=== PATIENT | male | born 1985 | race African-American/Black ===

== ENCOUNTER 2017-03-15 12:59 | Inpatient (IN) | payer OTHER ==
[~2017-03-15] VITALS: Ht 170.2 cm; Wt 77.6 kg
--- NOTE | 2017-03-15 12:59 | NUR ---
Patient BIBA to bed 7.
[2017-03-15 13:00] VITALS: BP 105/66
--- NOTE | 2017-03-15 13:20 | NUR ---
PATIENT BIBA DUE TO suicidal ideation/hurting himself.denies hearing voices.HX OF ptsd,depression. denies taking meds.DENIES N/V/D; SKIN IS PINK/WARM/DRY; LUNGS CLEAR BL; HR EVEN AND REGULAR; PT DENIES ANY FEVER, CP, SOB, OR COUGH AT THIS TIME; PATIENT STATES PAIN OF 0/10 AT THIS TIME; PATIENT POSITIONED FOR COMFORT; HOB ELEVATED; BEDRAILS UP X2; BED DOWN. ER MD MADE AWARE OF PT STATUS.
--- NOTE | 2017-03-15 13:30 | NUR ---
[facility] pd called and at bedside
[2017-03-15 13:58] LABS: BASOPHILS # (AUTO) 0.2 K/uL (0.00-0.22); EOSINOPHILS # (AUTO) 0.1 K/uL (0-0.4); HEMATOCRIT 41.2 % (36-52); HEMOGLOBIN 14.1 g/dL (12.0-18.0); LYMPHOCYTES # (AUTO) 0.7 K/uL (2.0-11.5); MEAN CORPUSCULAR HEMOGLOBIN 30 pg (27-31); MEAN CORPUSCULAR HGB CONC 34 g/dL (33-37); MEAN CORPUSCULAR VOLUME 89 fL (80-94); MONOCYTES # (AUTO) 0.6 K/uL (0.8-1.0); NEUTROPHILS # (AUTO) 4.5 K/uL (1.8-7.7); PLATELET COUNT (AUTO) 184 K/uL (140-450); RED BLOOD CELL COUNT(AUTO) 4.64 MIL/uL (4.20-6.10); WHITE BLOOD COUNT (AUTO) 6.1 K/uL (4.8-10.8)
[2017-03-15 14:09] LABS: ANION GAP 11.3 (8-16); CARBON DIOXIDE 29.6 mmol/L (21-32); CHLORIDE 103 mmol/L (98-107); CREATININE 1.2 mg/dL (0.7-1.3); GFR ARICAN-AMERICAN 92 mL/min (>90); GLUCOSE 90 mg/dL (74-106); POTASSIUM 3.9 mmol/L (3.5-5.1); SODIUM SERUM 140 mmol/L (136-145); UREA NITROGEN, BLOOD 11 mg/dL (7-18)
[2017-03-15 14:17] LABS: ALBUMIN 3.7 g/dL (3.4-5.0); ASPARTATE AMINOTRANSFERASE 22 U/L (15-37); TOTAL BILIRUBIN 0.7 mg/dL (0.0-1.0)
--- NOTE | 2017-03-15 14:23 | NUR ---
PT RESTING ON BED;SAFETY MEASURES INSTITUTED;NO ACUTE DISTRESS NOTED;WILL CONTINUE TO MONITOR PT.
[2017-03-15 14:28] LABS: ACETAMINOPHEN < 0.5 ug/ml (10-30); SALICYLATE < 2.8 mg/dL (2.8-20.0)
--- NOTE | 2017-03-15 15:30 | NUR ---
PT SLEEPING;NO ACUTE DISTRESS NOTED;WILL CONTINUE TO MONITOR PT.
--- NOTE | 2017-03-15 15:31 | NUR ---
RICARDO TURNER AT BEDSIDE.
[2017-03-15 16:12] LABS: APPEARANCE,URINE CLEAR (CLEAR); BILIRUBIN,URINE NEGATIVE (NEGATIVE); BLOOD, URINE NEGATIVE (NEGATIVE); COLOR,URINE YELLOW (YELLOW); LEUKOCYTE ESTERASE ,URINE NEGATIVE (NEGATIVE); NITRITE, URINE NEGATIVE (NEGATIVE); PH,URINE 6.5 (5.0-9.0); UGLUCOSE NEGATIVE (NEGATIVE)
[2017-03-15 16:24] LABS: BARBITURATE, URINE NEG. ng/ml (NEG <=200); BENZODIAZEPINE, URINE NEG. ng/mL (NEG <=200); CANNABINOID, URINE NEG. ng/mL (NEG <=50); COCAINE, URINE NEG. ng/mL (NEG <=300); OPIATE, URINE NEG. ng/mL (NEG <=2000); PHENCYCLIDINE SCREEN,URINE NEG. ng/mL (NEG <=25)
--- NOTE | 2017-03-15 19:15 | NUR ---
pt is in bed reading. will continue to monitor.
[2017-03-15] MEDS ORDERED: ACETAMINOPHEN 325 MG TAB PO PRN (19:35)
--- NOTE | 2017-03-15 20:12 | NUR ---
pt is in bed resting, vss, will continue to monitor.
[2017-03-15 20:15] VITALS: BP 110/54
--- NOTE | 2017-03-15 20:15 | NUR ---
PATIENT ADMITTED TO THE UNIT ON A 5150 HOLD FROM THE ER. PATIENT IS AWAKE, ALERT, AND ORIENTED. AMBULATORY. NO SIGNS AND SYMPTOMS OF DISTRESS NOTED. NO COMPLAINTS OF PAIN AT THIS TIME. SKIN IS INTACT. IV SITE NOTED ON RIGHT HAND, SALINE LOCKED. 1:1 SITTER IS PRESENT AT BEDSIDE. WILL CONTINUE TO MONITOR.
--- NOTE | 2017-03-15 20:36 | NUR ---
Patient will be admitted to care of DR. LUND. Admited to [facility]. Will go to room 123-B. Belongings list completed. Report to JERSON LARIOS.
--- NOTE | 2017-03-15 23:00 | NUR ---
CHECKED ON PATIENT. PATIENT IS ASLEEP. NO SIGNS AND SYMPTOMS OF DISTRESS NOTED. BREATHING EVEN AND UNLABORED. 1:1 SITTER PRESENT IN ROOM. WILL CONTINUE TO MONITOR.
[2017-03-16] VITALS: BP 97/62
--- NOTE | 2017-03-16 07:28 | NUR ---
PATIENT REPORT GIVEN TO MORNING NURSE. PATIENT IN STABLE CONDITION
--- NOTE | 2017-03-16 07:29 | NUR ---
RECEIVED REPORT FROM HEM MARKER NURSE PHUONG AT BEDSIDE FOR CONTINUITY OF CARE. PT IS LYING IN BED RIGHT NOW. INTRODUCED SELF AND UPDATED BOARD. BREAKFAST TRAY DELIVERED. SITTER AT BEDSIDE. PT DENIES SUICIDAL THOUGHTS. ASKED HOW PT IS DOING, PT STATED "OK" AND WENT BACK TO BED. NO SIGNS OF DISTRESS. BED IN LOW POSITION, WHEELS LOCKED. CALL LIGHT WITHIN REACH. WILL CONTINUE CONSTANT MONITORING.
[2017-03-16 08:00] VITALS: BP 95/48
--- NOTE | 2017-03-16 08:30 | NUR ---
FAXED SENT TO DR. STEWART [facility]. FAXED CONFIRMED. AWAITING FOR CALL BACK.
--- NOTE | 2017-03-16 09:36 | NUR ---
PATIENT HAS BEEN SCREENED AND CATEGORIZED LOW NUTRITION RISK. PATIENT WILL BE SEEN WITHIN 7 DAYS OF ADMISSION. 03/22/[address]
--- NOTE | 2017-03-16 11:30 | NUR ---
CHECKED ON PT IN ROOM. ASKED IF PT NEEDED ANYTHING. PT STATED NO. DENIES PAIN. NO COMPLAINTS AT THIS TIME. MILEY PÉREZ IS AT BEDSIDE. WILL CONTINUE CLOSE MONITORING.
--- NOTE | 2017-03-16 13:40 | NUR ---
PT WAS PRAYING IN ROOM. PT STATED THAT HE FEELS UNSAFE TO LEAVE HOSPITAL NOW BECAUSE HE HAD SUICIDAL THOUGHTS. INFORMED PT THAT HE IS NOT LEAVING TODAY AND THAT WE ARE CLOSELY MONITORING HIM. INFORMED HIM THAT HE WILL GET PSYCH EVAL. PT VERBALIZED UNDERSTANDING. PT ASKED FOR SNACK, GAVE JUICE AND JELL-O. PT IS WATCHING TV RIGHT NOW. MILEY PÉREZ AT BEDSIDE. WILL CONTINUE CLOSE MONITORING.
[2017-03-16 16:00] VITALS: BP 122/50
--- NOTE | 2017-03-16 16:42 | NUR ---
CALLED PSYCH OFFICE FOR DR. STEWART AND LEFT MESSAGE THAT PT STILL NEEDS CONSULT DONE.
--- NOTE | 2017-03-16 17:22 | NUR ---
DR. WALTON CALLED AND STATED SHE WILL BE HERE IN AN HOUR TO SEE PT.
--- NOTE | 2017-03-16 19:20 | NUR ---
ENDORSED PT TO DIGITAL ASSET SPECIALIST NURSE BLNACA. PT AND DAUGHTER AT BEDSIDE. PT IN STABLE CONDITION.
--- NOTE | 2017-03-16 19:28 | NUR ---
RECEIVED FROM AM RN IN BED WITH 1:1 SITTER. DX. OF SUICIDAL IDEATION. AWAKE AND ABLE TO VERBALIZE NEEDS WELL. NO SOB. DENIES PAIN AT THIS TIME. IVF SITE INTACT AND WITH GOOD BLOOD RETURN. CALL LIGHT WITH IN REACH . ENCOURAGED TO CALL FOR ANY HELP HE MAY NEED AND TO ASK FOR ANYTHING FROM SITTER. GOOD AFFECT NOTED.
--- NOTE | 2017-03-16 21:30 | NUR ---
MD GOMEZBENAVIDES IN TO SEE PT. NO COMPLAINTS DONE. SITTER 1:1.
--- NOTE | 2017-03-17 | NUR ---
STILL AWAKE AND WATCHING TV. ABLE TO VERBALIZE NEEDS WELL. ENCOURAGED TO SLEEP SO HE CAN REST. "OK"
[2017-03-17 00:59] VITALS: BP 121/62
--- NOTE | 2017-03-17 06:43 | NUR ---
SLEPT WELL THIS SHIFT. NO COMPLAINTS DONE. WITH 1:1 SITTER.
--- NOTE | 2017-03-17 07:28 | NUR ---
RECEIVED REPORT FROM BUDGET CONTROLLER NURSE BLANCA AT BEDSIDE FOR CONTINUITY OF CARE. PT IS SLEEPING IN BED WITH VISIBLE RESPIRATIONS. NO SIGNS OF DISTRESS. MILEY PÉREZ IS AT BEDSIDE. WILL CONTINUE TO MONITOR.
[2017-03-17 08:00] VITALS: BP 92/45
--- NOTE | 2017-03-17 12:02 | NUR ---
PT WAS ASKING ME TO CALL HIS BROTHER AND SISTER TO HAVE THEM BRING HIS BELONGINGS FROM HOME TO HIM. TOLD HIM THAT HE WOULD NOT BE ABLE TO ACCESS HIS BELONGINGS IF THEY WERE BROUGHT TO HIM BUT PLACED IN LOCKER WITH SECURITY. PT AWARE BUT WAS INSISTING ON CALLING HIS SIBLINGS TO BRING THEM. SAID HE WOULD CALL THE POLICE IF HE HAD TO. PT SAID THAT HIS FAMILY IS REFUSING TO BRING HIS BELONGINGS. PT AWARE THAT HE IS STILL GOING TO STAY HERE TONIGHT BUT I DON'T HAVE AUTHORITY TO MAKE HIS SIBLINGS BRING HIS BELONGINGS. PT AWARE AND STATED HE DOES NOT WANT NURSE TO GET INVOLVED IN HIS FAMILY ISSUES. PT IS CALM RIGHT NOW. EATING LUNCH TRAY. SITTER AT BEDSIDE. WILL CONTINUE CLOSE MONITORING.
--- NOTE | 2017-03-17 13:00 | NUR ---
CALLED PT'S BROTHER CLAY AT AND LEFT MESSAGE THAT PT NEEDED BELONGINGS RETURNED TO HIM. LEFT MST CALL BACK NUMBER. PT AWARE AT THIS TIME. KNOWS THAT HE CANNOT ACCESS HIS BELONGINGS IF RETURNED BUT WILL BE CHECKED BY SECURITY. DERRICKMAN HELPER AND SECURITY SPOKE WITH PT. PT VERBALIZED UNDERSTANDING. PT IS CALM AND COOPERATIVE. SITTER AT BEDSIDE. WILL CONTINUE TO MONITOR.
[2017-03-17 16:00] VITALS: BP 117/58
--- NOTE | 2017-03-17 17:03 | NUR ---
CHECKED PT IN ROOM. SITTING IN BED WATCHING TV. PT ASKED ABOUT WHEN HE CAN GET HIS BELONGINGS. TOLD PT THAT BROTHER DID NOT CALL BACK YET. PT AWARE. MILEY PÉREZ IS AT BEDSIDE. PT IS CALM RIGHT NOW. WILL CONTINUE CLOSE MONITORING.
--- NOTE | 2017-03-17 19:18 | NUR ---
ENDORSED PT TO BULK FOLDER NURSE TONA AT BEDSIDE FOR CONTINUITY OF CARE. SITTER AT BEDSIDE. PT IS CALM AND COOPERATIVE. IN STABLE CONDITION.
--- NOTE | 2017-03-17 19:19 | NUR ---
RECEIVED BEDSIDE REPORT FROM DAY SHIFT NURSE, YODIT RN, PT STABLE, NO DISTRESS NOTED, AAOX4, IV TO R WRIST 20G SL, PATENT, DRESSING CLEAN DRY AND INTACT, SKIN INTACT, INITIAL ASSESSMENT DONE, ALL SAFETY PRECAUTION MET, WILL CONTINUE TO MONITOR.
--- NOTE | 2017-03-17 22:43 | NUR ---
CHECKED ON PT, PT RESTING ON BED CALMLY READING BOOK, NO DISTRESS NOTED, 1:1 SITTER BY BEDSIDE.
[2017-03-18] VITALS: BP 99/54
--- NOTE | 2017-03-18 02:12 | NUR ---
CHECKED ON PT, PT SLEEPING, NO DISTRESS NOTED, CALL LIGHT WITHIN REACH, WILL CONTINUE TO MONITOR.
--- NOTE | 2017-03-18 05:30 | NUR ---
PT SLEEPING, NO DISTRESS NOTED, 1:1 SITTER BY BEDSIDE, WILL CONTINUE TO MONITOR.
--- NOTE | 2017-03-18 07:17 | NUR ---
GAVE BEDSIDE REPORT TO DAY SHIFT NURSE MICHELLE RN, PT STABLE, NO DISTRESS NOTED.
--- NOTE | 2017-03-18 07:18 | NUR ---
PATIENT LYING IN BED SLEEPING. AROUSABLE BY VOICE. NO DISTRESS NOTED. RESPIRATIONS EVEN, UNLABORED, ON ROOM AIR. DENIES ANY PAIN AT THIS TIME. AAOX4, CALM, COOPERATIVE, SKIN COLOR APPROPRIATE TO ETHNICITY, WARM TO TOUCH. DENIES ANY THOUGHTS OF HARMING SELF OR OTHERS. DENIES ANY HALLUCINATIONS. SKIN IS INTACT. IV SITE IS INTACT, PATENT, ON SALINE LOCK. ABDOMEN SOFT, NON-TENDER, NON-DISTENDED. REVIEWED PLAN OF CARE WITH PATIENT. PATIENT VERBALIZED UNDERSTANDING. SAFETY MEASURES IN PLACE, 1:1 SITTER AT BEDSIDE. WILL CONTINUE TO MONITOR.
[2017-03-18 08:00] VITALS: BP 96/55
--- NOTE | 2017-03-18 10:12 | NUR ---
MARIA ALEJANDRA NOTE SPOKE WITH THEA OF [facility] PH# [phone] TO INFORM HER OF THE ORDER FOR INPATIENT PSYCH REFERRAL/PLACEMENT AND FAXED CLINICAL INFO TO [facility] [phone].
--- NOTE | 2017-03-18 10:15 | NUR ---
PATIENT LYING IN BED COMFORTABLY. NO DISTRESS NOTED. RESPIRATIONS EVEN, UNLABORED ON ROOM AIR. PULSE RATE LOW DUE TO PATIENT BEING AN ATHLETE. AAOX4, CALM, COOPERATIVE, DENIES ANY THOUGHTS OF HARMING SELF, HOWEVER, VERBALIZES THAT "I NEED MENTAL HELP." SAFETY MEASURES IN PLACE, 1:1 SITTER AT BEDSIDE. WILL CONTINUE TO MONITOR.
--- NOTE | 2017-03-18 12:43 | NUR ---
PATIENT SITTING IN BED WITH LUNCH TRAY IN FRONT. NO DISTRESS NOTED. DENIES ANY PAIN. CONDITION UNCHANGED. AAOX4, CALM, COOPERATIVE. PATIENT HAD CALLED HIS SISTER RAYMOND, AND RAYMOND WILL BRING PATIENT'S BELONGINGS TO THE HOSPITAL TODAY AT 1800. SAFETY MEASURES IN PLACE, 1:1 SITTER AT BEDSIDE. WILL CONTINUE TO MONITOR.
--- NOTE | 2017-03-18 14:56 | NUR ---
MARIA ALEJANDRA THACKER SPOKE WITH ART OF [facility] PH# [phone] AND HE SAID THEY SENT OUT INQUIRY TO [facility] AND [facility], NO BED AVAILABILITY. I GAVE ART THE NUMBER TO THE CHARGE NURSE TO THE NURSING FLOOR WHERE PATIENT IS IN CASE PATIENT GETS ACCEPTED TO A PSYCH FACILITY AND BED AVAILABILITY AT A LATER TIME TODAY. CHARGE NURSE IRIS CORNELIUS. Addendum: 03/18/17 at 1502 by Caryn Rogers CM GAVE VERBAL CLINICAL UPDATE TO [facility] MARIA ALEJANDRA CEDILLO PH# [phone] AND FAXED HER THE H&P AND PROGRESS NOTES TO [phone]
[2017-03-18 16:00] VITALS: BP 130/64
--- NOTE | 2017-03-18 17:26 | NUR ---
PATIENT SITTING IN BED READING A BOOK. CONDITION UNCHANGED. NO DISTRESS NOTED. DENIES ANY THOUGHTS OF HARMING SELF, BUT CONTINUES TO VERBALIZE THAT HE NEEDS MENTAL HELP. AWAITING FOR INPATIENT PSYCH FACILITY PLACEMENT/AVAILABILITY. SAFETY MEASURES IN PLACE, 1:1 SITTER AT BEDSIDE. WILL CONTINUE TO MONITOR.
--- NOTE | 2017-03-18 18:45 | NUR ---
PATIENT'S SISTER AND BROTHER BROUGHT PATIENT'S BELONGINGS. CALLED SECURITY TO PLACE PATIENT'S BELONGINGS INTO A SAFE DUE TO 5150. WILL CONTINUE TO MONITOR.
--- NOTE | 2017-03-18 19:15 | NUR ---
GAVE REPORT TO ADJUNCT BUSINESS INSTRUCTOR NURSE FOR CONTINUITY OF CARE. PATIENT IN STABLE CONDITION.
--- NOTE | 2017-03-18 19:37 | NUR ---
RECEIVED PT IN STABLE CONDITION FROM AM NURSE. AWAKE ALERT AND ORIENTED X4. ON BALDEV SURG. HAS 1:1 SITTER FOR HOLD. PT IS AMBULATORY TO BR. WITH HL ON THE RT WRIST G#22. CLEAR AND PATENT. WILL CONTINUE TO MONITOR.
--- NOTE | 2017-03-18 21:00 | NUR ---
TRANSFERRED TO ROOM 109B. WITH 1:1 SITTER. WILL CONTINUE TO MONITOR.
[2017-03-18 23:40] VITALS: BP 113/59
--- NOTE | 2017-03-19 00:30 | NUR ---
SLEEPING WELL. WITH 1:1 SITTER IN ATTENDANCE. WILL CONTINUE TO MONITOR.
--- NOTE | 2017-03-19 03:00 | NUR ---
MADE ROUNDS. PT IS ASLEEP. NO DISCOMFORT NOTED. 1:1 SITTER IN ATTENDANCE.
--- NOTE | 2017-03-19 07:33 | NUR ---
ENDORSED PT IN STABLE CONDITION TO AM NURSE.
--- NOTE | 2017-03-19 07:34 | NUR ---
RECIEVED REPORT FROM CONSUMER LOAN PROCESSOR NURSE. PATIENT IN STABLE CONDITION. NO DISTRESS NOTED. PATIENT LYING IN BED SLEEPING. AROUSABLE BY VOICE. RESPIRATIONS EVEN, UNLABORED, ON ROOM AIR. DENIES ANY PAIN AT THIS TIME. AAOX4, CALM, COOPERATIVE, SKIN COLOR APPROPRIATE TO ETHNICITY, WARM TO TOUCH. DENIES ANY THOUGHTS OF HARMING SELF OR OTHERS. DENIES ANY HALLUCINATIONS. SKIN IS INTACT. IV SITE IS INTACT, PATENT, ON SALINE LOCK. ABDOMEN SOFT, NON-TENDER, NON-DISTENDED. REVIEWED PLAN OF CARE WITH PATIENT. PATIENT VERBALIZED UNDERSTANDING. SAFETY MEASURES IN PLACE, 1:1 SITTER AT BEDSIDE. WILL CONTINUE TO MONITOR.
[2017-03-19 08:00] VITALS: BP 109/56
--- NOTE | 2017-03-19 08:58 | NUR ---
CM NOTE SPOKE WITH ART OF [facility] # [phone] TO FOLLOW UP ON PSYCH PLACEMENT. PER ART THEY SENT OUT INQUIRY TO THE FOLLOWING PSYCH FACILITIES BUT NO BEDS AVAILABLE AT THIS TIME: [facility]
--- NOTE | 2017-03-19 09:40 | NUR ---
PATIENT LYING IN BED SLEEPING. AROUSABLE BY VOICE. NO DISTRESS NOTED. RESPIRATIONS EVEN, UNLABORED, ON ROOM AIR. CONDITION UNCHANGED. NO THOUGHTS OF HARMING SELF. SAFETY MEASURES IN PLACE, 1:1 SITTER AT BEDSIDE. WILL CONTINUE TO MONITOR.
--- NOTE | 2017-03-19 10:19 | NUR ---
CM NOTE INITIAL REVIEW FAXED TO [facility] [phone] MARIA ALEJANDRA MILLERA # [phone]
--- NOTE | 2017-03-19 11:41 | NUR ---
PATIENT SITTING IN ROOM READING A BOOK. NO DISTRESS NOTED. DENIES ANY THOUGHTS OF HARMING SELF OR OTHER, BUT VERBALIZES THAT HE NEEDS MENTAL HELP. SAFETY MEASURES IN PLACE, 1:1 SITTER AT BEDSIDE. WILL CONTINUE TO MONITOR.
--- NOTE | 2017-03-19 12:55 | NUR ---
PATIENT LYING IN BED COMFORTABLY. NO DISTRESS NOTED. CONDITION UNCHANGED. SAFETY MEASURES IN PLACE, 1:1 SITTER AT BEDSIDE. WILL CONTINUE TO MONITOR.
--- NOTE | 2017-03-19 14:48 | NUR ---
MARIA ALEJANDRA NOTE SPOKE WITH THEA OF [facility]# [phone] TO FOLLOW UP ON PSYCH PLACEMENT. PER THEA, THEY HAVE FOLLOWED UP WITH THE FACILITIES THEY SENT INQUIRY TO, NO BEDS AVAILABLE. [facility] WAS GIVEN THE NUMBER TO THE NURSING FLOOR CHARGE NURSE WHERE PATIENT IS IN CASE PATIENT IS ACCEPTED AND A BED BECOMES AVAILABLE IN PSYCH FACILITY AT A LATER TIME TODAY. CHARGE NURSE IRIS CORNELIUS.
--- NOTE | 2017-03-19 15:00 | NUR ---
PATIENT SITTING IN BED READING. NO DISTRESS NOTED. CONDITION UNCHANGED. WILL CONTINUE TO MONITOR.
[2017-03-19 16:00] VITALS: BP 110/58
--- NOTE | 2017-03-19 19:18 | NUR ---
GAVE REPORT TO GLASSWARE DEFECT REPAIRER NURSE. PATIENT IN STABLE CONDITION.
--- NOTE | 2017-03-19 19:20 | NUR ---
RECEIVED PT IN STABLE CONDITION FROM AM NURSE. AWAKE ,ALERT AND ORIENTED X4. ON . HAS 1:1 SITTER. AMBULATORY. MED SURG. HL ON THE RT WRIST #20. CLEAR AND PATENT. STILL WAITING FOR PSYCH FACILITY. WILL CONTINUE TO MONITOR.
[2017-03-20 00:30] VITALS: BP 134/63
--- NOTE | 2017-03-20 06:00 | NUR ---
PT HAS BEEN STABLE DURING THE NIGHT.
--- NOTE | 2017-03-20 07:25 | NUR ---
ENDORSED PT IN STABLE CONDITION TO AM NURSE.
[2017-03-20 08:00] VITALS: BP 111/63
--- NOTE | 2017-03-20 08:00 | NUR ---
RECEIVED REPORT FROM PAUL RN FOR CONTINUITY OF CARE. PATIENT SLEEPING BUT EASILY AWAKE NO S/S OF RESP DISTRESS NOTED NO COMPLAIN OF PAIN ABLE TO MAKE NEEDS KNOWN. SITTER AT THE BED SIDE FOR SAFETY WILL CONTINUE TO MONITOR.
--- NOTE | 2017-03-20 14:10 | NUR ---
RECEIVED REPORT FROM JERSON SIMMONS, PT LAYING IN BED ON RA, PT IN STABLE CONDITION, SAFETY PRECAUTIONS IN PLACE, WILL CONT TO MONITOR.
--- NOTE | 2017-03-20 14:10 | NUR ---
ENDORSE THE CARE TO VALENTIN
--- NOTE | 2017-03-20 15:03 | NUR ---
CM NOTE CONCURRENT REVIEW FAXED TO [facility] [phone] MARIA ALEJANDRA CEDILLO PH# [phone] PER THEA OF [facility] PH# [phone], NO BEDS AVAILABLE BUT THEY RE-FAXED INQUIRY TO THE FF: [facility] [place]
[2017-03-20 16:01] VITALS: BP 126/68
--- NOTE | 2017-03-20 19:17 | NUR ---
ENDORSED CARE TO NIGHT RN, PT IN STABLE CONDITION.
--- NOTE | 2017-03-20 19:18 | NUR ---
PATIENT IS CURRENTLY RESTING IN BED AWAKE ALERT AT THIS TIME PATIENT IS CALM AND COOPERATIVE LET ME CHECK HIS VITAL SIGNS. PATIENT RESTING IN BED PATIENT ASKING IF HE NEEDS TO HAVE HIS IV HE SAID HIS HAD IT FOR 5 DAYS AND PATIENT STATES," ITS HURTING ME." PATIENT IS REQUESTING TO HAVE IT REMOVED IF POSSIBLE PATIENT STATES,"I DON'T WANT IT." I CHECKED THAT PATIENT ISN'T GETTING ANY IV MEDS OR ANTIBIOTIC AND EDUCATED HIM ON THE IMPORTNACE OF HIM HAVING AN IV ACCESS WHILE HIS IN THE HOSPITAL BUT PATIENT REFUSED. THEN I DISCONTINUED HIS IV SALINE LOCK. SKIN IS CURRENTLY INTACT.PATIENT AMBULATES WELL AND IS ABLE TO MAKE NEED KNOWN.SITTER 1:1 AT BEDSIDE PROVIDING AND MAKING SURE THERE CONTINUES TO HAVE A SAFE ENVIRONMENT AND ALSO AT THIS TIME PATIENT VOICES NO SUICIDAL THOUGHTS OR IDEATIONS AND ISN'T ATTEMPTING TO HARM HIMSELF OR STAFF.PATIENT READING HIS BIBLE PATIENT CONTINUES TO BE MONITORED NEEDS CONTINUE TO BE MET FRESH WATER GIVEN TO THE PATIENT.WILL CONTINUE TO OBSERVE.
[2017-03-20 20:00] VITALS: BP 118/62
--- NOTE | 2017-03-20 22:27 | NUR ---
Patient's Plan of Care was discussed and reviewed with IMMIGRATION CASE MANAGER: JULIO BOLES
--- NOTE | 2017-03-20 22:30 | NUR ---
PATIENT IS CURRENTLY SLEEPING IN BED NO DISTRESS GETS UP TO USE THE BATHROOM AND GOES BACK TO SLEEP.PATIENT CALM AND SLEEPING AT THIS TIME.WILL CONTINUE TO OBSERVE.
--- NOTE | 2017-03-21 00:03 | NUR ---
PATIENT IS CURRENTLY SLEEPING GETS UP TO THE BATHROOM OCCASIONALLY PATIENT REMAINS CALM AND COOPERATIVE HASN'T ATTEMPTED TO HARM HIMSELF OR HASN'T VOICED ANY SUICIDAL THOUGHTS.WILL CONTINUE TO OBSERVE.
--- NOTE | 2017-03-21 03:02 | NUR ---
PATIENT IS RESTING COMFORTABLY IN BED PATIENT SLEEPING.WILL CONTINUE TO OBSERVE.
[2017-03-21 04:14] VITALS: BP 108/60
--- NOTE | 2017-03-21 05:45 | NUR ---
PATIENT IS CURRENTLY SLEEPING NEEDS MET WILL CONTINUE TO OBSERVE.
--- NOTE | 2017-03-21 07:24 | NUR ---
PATIENT STABLE SLEEPING IN BED REPORT ENDORSED TO JERSON DONAHUE AT BEDSIDE SHE WILL RESUME CARE OF THE PATIENT.
--- NOTE | 2017-03-21 07:25 | NUR ---
RECEIVED REPORT FROM LOG ROPER NURSE, PT IS A/OX4, PT IS AMBULATORY, PT HAS NO IV ACCESS, PT REFUSES NEW IV TO BE RESTARTED AT THIS TIME, SKIN IS INTACT, NO S/S OF RESPIRATORY DISTRESS OR DISCOMFORT NOTED, DISCUSSED PLAN OF CARE WITH PT, PT VERBALIZED UNDERSTANDING, SAFETY/FALL PRECAUTIONS ARE IN PLACE, CALL LIGHT IS WITHIN REACH, WILL CONTINUE TO MONITOR.
[2017-03-21 08:00] VITALS: BP 120/71
[2017-03-21] MEDS ORDERED: SERT25TA84 PO (08:51)
--- NOTE | 2017-03-21 10:14 | NUR ---
DISCHARGE INSTRUCTIONS PROVIDED, INFORMATION ON MENTAL HEALTH, SUBSTANCE ABUSE AND GROUP HOME GIVEN, BUS PASS GIVEN TO PATIENT,ID WRIST BAND REMOVED, NO IV IN PLACE.
== END 2017-03-21 10:40 | disposition home or self-care (01) | DRG 751 ==
LOC: MED 12:59 → MTU 19:40
PROVIDERS: ADMIT Hospitalist; ATTEND Hospitalist
DX: F33.2 Major depressive disorder, recurrent severe without psychotic features (principal); R45.851 Suicidal ideations; F15.90 Other stimulant use, unspecified, uncomplicated; F43.10 Post-traumatic stress disorder, unspecified; Z59.0 Homelessness; Z91.5 Personal history of self-harm; Z79.899 Other long term (current) drug therapy
CPT/HCPCS: 36415; 71010; 80053; 80305; 81003; 85025; 87081; 93005; 99285; G0480; G0482; Q0092